=== PATIENT | male | born 1955 | race Hispanic/Latino ===

== ENCOUNTER 2018-01-27 10:32 | Emergency (ER) | payer MEDICARE ==
--- NOTE | 2018-01-27 11:27 | ED PDOC ---
Lower Extremity Pain/Injury Time Seen by Provider: 01/27/18 11:25 Chief Complaint (Nursing): Lower Extremity Problem/Injury Chief Complaint (Provider): lower leg wounds History Per: Patient (59 y/o male undomiciled here with lower leg wounds noted ongoing. Patient states wounds began due to bedbugs picked up at motel. Has since been itching moderate amount. Denies any fevers/chills. PMD Dr. Strange) Past Medical History Reviewed: Historical Data, Nursing Documentation, Vital Signs - Family History Family History: States: No Known Family Hx - Allergies Allergies/Adverse Reactions: Allergies Allergy/AdvReac Type Severity Reaction Status Date / Time Unobtainable Allergy Verified 01/27/18 10:41 Review of Systems ROS Statement: Except As Marked, All Systems Reviewed And Found Negative Physical Exam - Reviewed Nursing Documentation Reviewed: Yes Vital Signs Reviewed: Yes - Physical Exam Appears: Positive for: Well, Non-toxic, No Acute Distress Head Exam: Positive for: ATRAUMATIC, NORMAL INSPECTION, NORMOCEPHALIC Skin: Positive for: Normal Color, Warm, DRY Eye Exam: Positive for: EOMI, Normal appearance, PERRL ENT: Positive for: Normal ENT Inspection Neck: Positive for: Normal, Painless ROM Cardiovascular/Chest: Positive for: Regular Rate, Rhythm Respiratory: Positive for: CNT, Normal Breath Sounds Gastrointestinal/Abdominal: Positive for: Normal Exam, Soft Back: Positive for: Normal Inspection Extremity: Positive for: Normal ROM, Other (Superficial leg wounds noted posterior right leg) Neurologic/Psych: Positive for: Alert, Oriented - Progress ED Course And Treament: SEEN BY PODIATRY RESIDENT XEROFORM GUAZE DRESSING APPLIED. PATIENT TO F/U WITH PODIATRY CLINIC. Disposition - Clinical Impression Clinical Impression: Superficial wound - Patient ED Disposition Is Patient to be Admitted: No - Disposition Referrals: Podiatry Clinic [Outside] Disposition: Routine/Home Disposition Time: 12:01 Condition: FAIR Instructions: Wound Care (DC)
[2018-01-27 13:08] VITALS: BP 138/76; PULSE 84; RESP 16; TEMP 98; O2SAT 98
== END 2018-01-27 15:30 | disposition home or self-care (01) ==
LOC: H.ER 10:32
DX: S80.921A Unspecified superficial injury of right lower leg, initial encounter (principal); S80.922A Unspecified superficial injury of left lower leg, initial encounter; Y92.89 Other specified places as the place of occurrence of the external cause